=== PATIENT | male | born 1990 | race Caucasian/White ===

== ENCOUNTER 2017-07-11 17:02 | Emergency (ER) | payer SELFPAY ==
[2017-07-11 17:45] LABS: #Eosinphils 0.1 thou/uL (0.0-0.7); #Lymphocytes 1.7 thou/uL (1.20-3.40); #Monocytes 0.5 thou/uL (0.11-0.59); #Neutrophils 4.5 thou/uL (1.40-6.50); %Basophils 0.4 % (0.0-1.0); %Eosinophils 1.1 % (0.0-10.0); %Lymphocytes 24.8 % (21.0-51.0); %Monocytes 7.5 % (0.0-10.0); %Neutrophils 66.1 % (42.0-75.0); Hemoglobin 14.5 g/dL (14.0-18.0); Mean Corpuscular Volume 94.3 fl (80.0-94.0); Platelet Count 263 thou/uL (130-400); RBC Distribution Width 12.5 % (11.5-14.5); Red Blood Cell (RBC) Count 4.52 mill/uL (4.70-6.10); White Blood Cell (WBC) Count 6.8 thou/uL (4.8-10.8)
[2017-07-11 18:04] LABS: ALT (SGPT) 11 U/L (8-55); AST (SGOT) 13 U/L (5-34); Albumin 4.5 g/dL (3.5-5.0); Alkaline Phosphatase 90 U/L (40-150); Anion Gap 10 mmol/L (10-20); BUN (Urea Nitrogen) 11 mg/dL (8.9-20.6); Bilirubin, Total 0.6 mg/dL (0.2-1.2); Calc. Creatinine Clearance 0 mL/min (70-130); Calcium 9.6 mg/dL (7.8-10.44); Carbon Dioxide 31 mmol/L (22-29); Chloride 105 mmol/L (98-107); Estimated GFR-MDRD Greater than 90; Glucose 109 mg/dL (70-105); Potassium 3.6 mmol/L (3.5-5.1); Protein, Total 7.5 g/dL (6.0-8.3); Sodium 142 mmol/L (136-145)
== END 2017-07-11 19:47 | disposition home or self-care (01) ==
LOC: ERS 17:02
DX: K62.5 Hemorrhage of anus and rectum (principal); F17.210 Nicotine dependence, cigarettes, uncomplicated; Z71.6 Tobacco abuse counseling
CPT/HCPCS: 36415; 80053; 82274; 85025; 99406

== ENCOUNTER 2020-03-31 01:46 | Emergency (ER) | payer SELFPAY ==
[2020-03-31] MEDS ORDERED: Lidocaine 1% w/Epinephrine 1:100K 20 ML VIAL ONE (02:02)
== END 2020-03-31 02:49 | disposition home or self-care (01) ==
LOC: ERS 01:46
DX: L02.211 Cutaneous abscess of abdominal wall (principal); L03.311 Cellulitis of abdominal wall
CPT/HCPCS: 10060

== ENCOUNTER 2021-09-11 09:54 | Emergency (ER) | payer SELFPAY ==
[2021-09-11] MEDS ORDERED: Ondansetron PF 4 MG/2 ML Vial ONE ×2 (10:31→10:40)
[2021-09-11] MEDS ORDERED: Morphine 4 MG/ML VIAL ONE (10:39)
[2021-09-11] MEDS ORDERED: Ketorolac Tromethamine 30 MG/ML VIAL ONE (10:39)
[2021-09-11 11:14] LABS: #Monocytes 0.7 thou/uL (0.11-0.59); #Neutrophils 9.4 thou/uL (1.40-6.50); %Basophils 0.1 % (0.0-1.0); %Eosinophils 0.2 % (0.0-10.0); %Monocytes 6.1 % (0.0-10.0); %Neutrophils 84.6 % (42.0-75.0); Hemoglobin 15.4 g/dL (14.0-18.0); Mean Corpuscular HGB CONC 33.9 g/dL (32.0-36.0); Mean Corpuscular Hemoglobin 32.7 pg (27.0-31.0); Mean Corpuscular Volume 96.5 fL (78.0-98.0); Mean Platelet Volume 7.3 fL (7.4-10.4); Platelet Count 222 thou/uL (130-400); RBC Distribution Width 12.6 % (11.5-14.5); Red Blood Cell (RBC) Count 4.71 mill/uL (4.70-6.10); White Blood Cell (WBC) Count 11.2 thou/uL (4.8-10.8)
[2021-09-11 11:18] LABS: Bacteria/HPF 3+ HPF (None Seen); Bilirubin Negative (Negative); Blood, Urine Negative (Negative); Clarity Extra Turbid (Clear); Glucose, Urine (Dipstick) Normal (Negative); Ketone, Urine Negative (Negative); Leukocyte Negative Leu/uL (Negative); Nitrite Negative (Negative); Protein, Urine (Dipstick) 30 mg/dL (Neg-Trace); RBC/HPF 0-3 HPF (0-3); Specific Gravity, Urine 1.025 (1.002-1.036); Squamous Epithelial None Seen HPF (0-3); Urobilinogen Normal mg/dL (Less than 2); WBC/HPF None Seen HPF (0-3)
[2021-09-11 11:32] LABS: ALT (SGPT) 45 U/L (8-55); Alkaline Phosphatase 83 U/L (40-110); Calc. Creatinine Clearance 0 mL/min (70-130); Chloride 102 mmol/L (98-107); Globulin 2.7 g/dL (2.4-3.5); Potassium 4.3 mmol/L (3.5-5.1); Protein, Total 6.7 g/dL (6.0-8.3); Sodium 136 mmol/L (136-145)
[2021-09-11 11:43] LABS: AST (SGOT) 21 U/L (5-34); Anion Gap 13 mmol/L (10-20); BUN (Urea Nitrogen) 16 mg/dL (8.9-20.6); Bilirubin, Total 0.3 mg/dL (0.2-1.2); Calcium 8.7 mg/dL (7.8-10.44); Carbon Dioxide 26 mmol/L (22-29); Glucose 112 mg/dL (70-105); Lipase 13 U/L (8-78)
[2021-09-11 18:37] LABS: Chlam.trachomatis by PCR,Urine Not Detected (NotDetected)
== END 2021-09-11 14:12 | disposition home or self-care (01) ==
LOC: ERS 09:54
DX: R10.13 Epigastric pain (principal); R10.811 Right upper quadrant abdominal tenderness; R10.812 Left upper quadrant abdominal tenderness; R82.71 Bacteriuria
CPT/HCPCS: 36415; 71045; 74176; 80053; 81003; 81015; 83690; 85025; 87491; 87591; 96374; 96375; J1885; J2270; J2405

== ENCOUNTER 2021-10-04 23:54 | Emergency (ER) | payer SELFPAY ==
[2021-10-05 00:32] LABS: #Basophils 0.1 thou/uL (0.0-0.2); #Eosinphils 0.3 thou/uL (0.0-0.7); #Monocytes 0.8 thou/uL (0.11-0.59); #Neutrophils 5.4 thou/uL (1.40-6.50); %Basophils 0.5 % (0.0-1.0); %Eosinophils 3.1 % (0.0-10.0); %Lymphocytes 31.4 % (21.0-51.0); %Monocytes 8.3 % (0.0-10.0); %Neutrophils 56.7 % (42.0-75.0); Hemoglobin 15.3 g/dL (14.0-18.0); Mean Corpuscular HGB CONC 33.4 g/dL (32.0-36.0); Mean Corpuscular Hemoglobin 31.5 pg (27.0-31.0); Mean Corpuscular Volume 94.4 fL (78.0-98.0); Mean Platelet Volume 7.5 fL (7.4-10.4); Platelet Count 253 thou/uL (130-400); RBC Distribution Width 12.4 % (11.5-14.5); Red Blood Cell (RBC) Count 4.87 mill/uL (4.70-6.10); White Blood Cell (WBC) Count 9.5 thou/uL (4.8-10.8)
[2021-10-05 00:56] LABS: ALT (SGPT) 51 U/L (8-55); AST (SGOT) 81 U/L (5-34); Albumin 4.3 g/dL (3.5-5.0); Alkaline Phosphatase 94 U/L (40-110); Anion Gap 15 mmol/L (10-20); BUN (Urea Nitrogen) 12 mg/dL (8.9-20.6); Bilirubin, Total 0.3 mg/dL (0.2-1.2); Calc. Creatinine Clearance 0 mL/min (70-130); Calcium 9.2 mg/dL (7.8-10.44); Carbon Dioxide 26 mmol/L (22-29); Chloride 104 mmol/L (98-107); Globulin 3.2 g/dL (2.4-3.5); Glucose 93 mg/dL (70-105); Lipase 33 U/L (8-78); Potassium 3.9 mmol/L (3.5-5.1); Protein, Total 7.5 g/dL (6.0-8.3); Sodium 141 mmol/L (136-145)
== END 2021-10-05 02:30 | disposition home or self-care (01) ==
LOC: ERS 23:54
DX: K29.00 Acute gastritis without bleeding (principal)
CPT/HCPCS: 74177; 80053; 83690; 85025

== ENCOUNTER 2022-05-04 01:33 | Emergency (ER) | payer SELFPAY | END 2022-05-04 03:18 | disposition home or self-care (01) | LOC: ERS 01:33 | DX: M79.642 Pain in left hand (principal); W22.09XA Striking against other stationary object, initial encounter ==

== ENCOUNTER 2023-06-19 14:30 | Emergency (ER) | payer SELFPAY ==
[2023-06-19] MEDS ORDERED: Ondansetron ODT 4 MG TAB ONE (15:17)
[2023-06-19] MEDS ORDERED: Ibuprofen 200 MG TAB ONE (15:17)
[2023-06-19 15:21] LABS: SARS-CoV-2 NAA Rapid Test Not Detected (NotDetected)
== END 2023-06-19 15:36 | disposition home or self-care (01) ==
LOC: ERS 14:30
DX: K52.9 Noninfective gastroenteritis and colitis, unspecified (principal); J06.9 Acute upper respiratory infection, unspecified
CPT/HCPCS: 99284; Q0162

== ENCOUNTER 2024-05-20 12:01 | Emergency (ER) | payer SELFPAY ==
[2024-05-20] MEDS ORDERED: Acetaminophen 500 MG TAB ONE (14:30)
[2024-05-20] MEDS ORDERED: Ibuprofen 800 MG TAB ONE (14:31)
[2024-05-20] MEDS ORDERED: Metoclopramide HCl 10 MG (2 mL) VIAL ONE (15:30)
[2024-05-20] MEDS ORDERED: diphenhydrAMINE 50 MG/ML VIAL ONE (15:30)
== END 2024-05-20 16:58 | disposition home or self-care (01) ==
LOC: ERS 12:01
DX: J01.90 Acute sinusitis, unspecified (principal); R51.9 Headache, unspecified; Z87.891 Personal history of nicotine dependence
CPT/HCPCS: 87428; 96374; 96375; J1200; J2765

== ENCOUNTER 2024-06-02 00:32 | Emergency (ER) | payer SELFPAY ==
[2024-06-02] MEDS ORDERED: Ketorolac Tromethamine 30 MG (1 mL) VIAL ONE (00:54)
[2024-06-02] MEDS ORDERED: Amoxicillin/Potassium Clav 875 MG TAB ONE (00:54)
[2024-06-02] MEDS ORDERED: HYDROcodone/Acetaminophen 5/325 mg Tablet ONE (00:55)
== END 2024-06-02 01:25 | disposition home or self-care (01) ==
LOC: ERS 00:32
DX: K04.7 Periapical abscess without sinus (principal); F17.210 Nicotine dependence, cigarettes, uncomplicated
CPT/HCPCS: 96372; 99282; J1885

== ENCOUNTER 2024-06-02 14:58 | Emergency (ER) | payer SELFPAY ==
[2024-06-02] MEDS ORDERED: Ketorolac Tromethamine 30 MG (1 mL) VIAL ONE (15:40)
== END 2024-06-02 15:56 | disposition home or self-care (01) ==
LOC: ERS 14:58
DX: K08.89 Other specified disorders of teeth and supporting structures (principal); R22.0 Localized swelling, mass and lump, head; F17.210 Nicotine dependence, cigarettes, uncomplicated
CPT/HCPCS: 96372; 99282; J1885

== ENCOUNTER 2025-01-20 11:29 | Emergency (ER) | payer OTHER ==
[2025-01-20 12:47] LABS: #Basophils 0.04 10x3/uL (0.0-0.2); #Eosinophils 0.17 10x3/uL (0.0-0.7); #Monocytes 0.65 10x3/uL (0.11-0.59); #Neutrophils 5.46 10x3/uL (1.40-6.50); %Basophils 0.5 % (0.0-1.0); %Eosinophils 2.1 % (0.0-10.0); %Lymphocytes 20.8 % (21.0-51.0); %Monocytes 8.1 % (0.0-10.0); %Neutrophils 68.3 % (42.0-75.0); Hematocrit 42.9 % (42.0-52.0); Hemoglobin 14.7 g/dL (14.0-18.0); Mean Corpuscular Hemoglobin 31.2 pg (27.0-31.0); Mean Corpuscular Volume 91.1 fL (78.0-98.0); Platelet Count 264 10x3/uL (130-400); Red Blood Cell (RBC) Count 4.71 mill/uL (4.70-6.10); White Blood Cell (WBC) Count 8.01 10x3/uL (4.8-10.8)
[2025-01-20 13:06] LABS: Bacteria/HPF None Seen HPF (None Seen); CAUTI Indications for Culture Acute Hematuria; Glucose, Urine (Dipstick) Normal (Negative); Leukocyte Negative Leu/uL (Negative); Protein, Urine (Dipstick) 20 mg/dL (Neg-Trace); RBC/HPF 0-3 HPF (0-3); Specific Gravity, Urine 1.032 (1.002-1.036); WBC/HPF 0-3 HPF (0-3)
[2025-01-20 13:08] LABS: Urine Culture Reflex No No
[2025-01-20 13:10] LABS: ALT (SGPT) 8 U/L (Less than 45); AST (SGOT) 26 U/L (11-34); Albumin 4.2 g/dL (3.1-4.5); Alkaline Phosphatase 127 U/L (40-110); Anion Gap 15 mmol/L (10-20); BUN (Urea Nitrogen) 11 mg/dL (8.9-20.6); Bilirubin, Total 0.6 mg/dL (0.3-1.2); Calc. Creatinine Clearance 0 mL/min (70-130); Calcium 8.8 mg/dL (7.8-10.44); Carbon Dioxide 24 mmol/L (22-29); Chloride 107 mmol/L (98-107); Globulin 3.4 g/dL (2.4-3.5); Glucose 97 mg/dL (70-105); Lipase 11 U/L (8-78); Potassium 3.6 mmol/L (3.5-5.1); Sodium 142 mmol/L (136-145)
== END 2025-01-20 13:25 | disposition home or self-care (01) ==
LOC: ERS 11:29
DX: R10.9 Unspecified abdominal pain (principal); R68.83 Chills (without fever); F17.210 Nicotine dependence, cigarettes, uncomplicated
CPT/HCPCS: 80053; 81001; 83690; 85025; 99284

== ENCOUNTER 2025-04-02 22:56 | Emergency (ER) | payer OTHER | END 2025-04-03 01:23 | disposition home or self-care (01) | LOC: ERS 22:56 | DX: B34.9 Viral infection, unspecified (principal); F17.210 Nicotine dependence, cigarettes, uncomplicated | CPT/HCPCS: 87081; 87428; 87430; 99283 ==

== ENCOUNTER 2025-05-21 08:18 | Emergency (ER) | payer OTHER ==
[2025-05-21 09:00] LABS: Bacteria/HPF None Seen HPF (None Seen); CAUTI Indications for Culture Pelvic or flank pain; Glucose, Urine (Dipstick) Normal (Negative); Leukocyte Negative Leu/uL (Negative); Protein, Urine (Dipstick) 30 mg/dL (Neg-Trace); RBC/HPF 0-3 HPF (0-3); Specific Gravity, Urine 1.028 (1.002-1.036); WBC/HPF 0-3 HPF (0-3)
[2025-05-21 09:05] LABS: Urine Culture Reflex No No
[2025-05-21] MEDS ORDERED: Ketorolac Tromethamine 30 MG (1 mL) VIAL ONE (09:13)
[2025-05-21] MEDS ORDERED: Dexamethasone 10 MG/ML VIAL ONE (09:13)
== END 2025-05-21 10:00 | disposition home or self-care (01) ==
LOC: ERS 08:18
DX: S39.012A Strain of muscle, fascia and tendon of lower back, initial encounter (principal); F17.210 Nicotine dependence, cigarettes, uncomplicated; X58.XXXA Exposure to other specified factors, initial encounter
CPT/HCPCS: 72100; 81001; 96372; 99283; J1100; J1885